=== PATIENT | male | born 1975 | race Caucasian/White ===

== ENCOUNTER 2021-08-07 10:08 | Emergency (ER) | payer BC ==
--- NOTE | 2021-08-07 11:02 | ER ---
Nurse's Notes [facility] [place] Name: Beny Nino Age: 45 yrs Sex: Male : 1975 Arrival Date: 08/07/2021 Time: 10:11 Bed 15 Private MD: Diagnosis: Tobacco abuse counseling;Tobacco use;Dyspnea Presentation: 08/07 10:24 Chief complaint: Patient states: SOB for 7-10 days, worse for 2 days. No cough or ll1 fever. Worried because his mom has lung CA. Coronavirus screen: Vaccine status: Patient reports being unvaccinated. Client denies travel out of the [place] in the last 14 days. difficulty breathing, fatigue, shortness of breath, Client presents with at least one sign or symptom that may indicate coronavirus-19. Standard/surgical mask placed on the client. Ebola Screen: Patient denies travel to an Ebola-affected area in the 21 days before illness onset. Initial Sepsis Screen: Does the patient meet any 2 criteria? No. Patient's initial sepsis screen is negative. Does the patient have a suspected source of infection? Yes: Productive cough/pneumonia. Risk Assessment: Do you want to hurt yourself or someone else? Patient reports no desire to harm self or others. Onset of symptoms was July 29, 2021. 10:24 Method Of Arrival: Ambulatory ll1 10:24 Acuity: LEO 3 ll1 Triage Assessment: 10:26 General: Appears in no apparent distress. Behavior is cooperative, appropriate for age, ll1 anxious. Pain: Denies pain. Respiratory: Reports shortness of breath Onset: The symptoms/episode began/occurred 10 days, the patient has mild shortness of breath. Historical: - Allergies: 10:23 No Known Allergies; ll1 - PMHx: 10:23 None; ll1 - PSHx: 10:23 knee cellulitis SX; ll1 - Immunization history:: Client reports having NOT received the Covid vaccine. - Social history:: Smoking status: Patient reports the use of cigarette tobacco products, smokes one-half pack cigarettes per day. - Family history:: not pertinent. Screenin:22 Abuse screen: Denies threats or abuse. Denies injuries from another. Nutritional ph screening: No deficits noted. Tuberculosis screening: No symptoms or risk factors identified. Fall Risk None identified. Assessment: 10:37 General: Appears in no apparent distress. comfortable, well groomed, Behavior is calm, ph cooperative, appropriate for age, Denies fever, chills, Pt states, " It's like I have episodes of were I feel like I can't breathe and my heart races and I feel weak. It happened at work this morning." Pt's SO at bedside reports that pt has had these symptoms on mornings after drinking alcohol the night before. . Pain: Denies pain. Neuro: Level of Consciousness is awake, alert, obeys commands, Oriented to person, place, time, situation. Cardiovascular: Reports lightheadedness, palpitations, shortness of breath, denies at this time Denies chest pain, diaphoresis, nausea, vomiting. Respiratory: Reports shortness of breath Airway is patent Respiratory effort is even, unlabored, Respiratory pattern is regular, symmetrical, Breath sounds are clear bilaterally. GI: No signs and/or symptoms were reported involving the gastrointestinal system. Derm: Skin is intact, is healthy with good turgor, Skin is pink, warm \\T\\ dry. Musculoskeletal: Circulation, motion, and sensation intact. Range of motion: intact in all extremities. 11:01 Reassessment: D/C pending xray results. ph Vital Signs: 10:24 BP 134 / 73; Pulse 85; Resp 18; Temp 99.1(TE); Pulse Ox 97% on R/A; Weight 78.93 kg; ll1 Height 6 ft. 0 in. (182.88 cm); Pain 0/10; 11:40 BP 127 / 80; Pulse 87; Resp 18; Temp 98.9; Pulse Ox 98% on R/A; ph 10:24 Body Mass Index 23.60 (78.93 kg, 182.88 cm) ll1 ED Course: 10:11 Patient arrived in ED. rg4 10:15 Shar Nino MD is Attending Physician. lui 10:22 Vika Collins, RN is Primary Nurse. ph 10:22 Arm band placed on Patient placed in an exam room, on a stretcher. ll1 10:23 Patient has correct armband on for positive identification. Bed in low position. Call ph light in reach. Side rails up X 1. Pulse ox on. NIBP on. Door closed. Noise minimized. 10:26 Triage completed. ll1 11:00 Shane Green DO is Referral Physician. [facility] 11:03 Chest Pa And Lat (2 Views) XRAY In Process Unspecified. EDMS 11:40 No provider procedures requiring assistance completed. Patient did not have IV access ph during this emergency room visit. Administered Medications: No medications were administered Medication: 10:23 VIS not applicable for this client. ph Outcome: 11:00 Discharge ordered by . [facility] 11:45 Patient left the ED. ph 12:14 Discharged to home ambulatory, with significant other. ph 12:14 Condition: good 12:14 Discharge instructions given to patient, Instructed on discharge instructions, follow up and referral plans. Demonstrated understanding of instructions, follow-up care. Signatures: Dispatcher [employer] EDND Shar Nino MD MD cha Hall, Patricia, RN RN Akanksha Butler rg4 Leonor Santiago RN RN ll1
--- NOTE | 2021-08-07 11:02 | EDPHYS ---
Physician Documentation [facility] Name: Beny Nino Age: 45 yrs Sex: Male : 1975 Arrival Date: 08/07/2021 Time: 10:11 Bed 15 Private MD: Shar De La Rosa HPI: 08/07 10:56 This 45 yrs old Male presents to ER via Ambulatory with complaints of lui Breathing Difficulty, Weakness. 10:56 The patient has shortness of breath at rest, with light activity. Onset: The lui symptoms/episode began/occurred just prior to arrival. Duration: The symptoms are intermittent, with no pattern. The patient's shortness of breath is aggravated by nothing, is alleviated by nothing. Associated signs and symptoms: The patient has no apparent associated signs or symptoms. Severity of symptoms: At their worst the symptoms were mild in the emergency department the symptoms have improved markedly. The patient has experienced similar episodes in the past, several times. Historical: - Allergies: 10:23 No Known Allergies; ll1 - PMHx: 10:23 None; ll1 - PSHx: 10:23 knee cellulitis SX; ll1 - Immunization history:: Client reports having NOT received the Covid vaccine. - Social history:: Smoking status: Patient reports the use of cigarette tobacco products, smokes one-half pack cigarettes per day. - Family history:: not pertinent. ROS: 10:56 Constitutional: Negative for fever, chills, and weight loss, Eyes: Negative for injury, lui pain, redness, and discharge, ENT: Negative for injury, pain, and discharge, Neck: Negative for injury, pain, and swelling, Cardiovascular: Negative for chest pain, palpitations, and edema, Abdomen/GI: Negative for abdominal pain, nausea, vomiting, diarrhea, and constipation, Back: Negative for injury and pain, : Negative for injury, bleeding, discharge, and swelling, MS/Extremity: Negative for injury and deformity, Skin: Negative for injury, rash, and discoloration, Neuro: Negative for headache, weakness, numbness, tingling, and seizure, Psych: Negative for depression, anxiety, suicide ideation, homicidal ideation, and hallucinations, Allergy/Immunology: Negative for hives, rash, and allergies, Endocrine: Negative for neck swelling, polydipsia, polyuria, polyphagia, and marked weight changes, Hematologic/Lymphatic: Negative for swollen nodes, abnormal bleeding, and unusual bruising. 10:56 Respiratory: Positive for cough, shortness of breath, at rest. Exam: 10:56 Constitutional: This is a well developed, well nourished patient who is awake, alert, lui and in no acute distress. Head/Face: Normocephalic, atraumatic. Eyes: Pupils equal round and reactive to light, extra-ocular motions intact. Lids and lashes normal. Conjunctiva and sclera are non-icteric and not injected. Cornea within normal limits. Periorbital areas with no swelling, redness, or edema. ENT: Nares patent. No nasal discharge, no septal abnormalities noted. Tympanic membranes are normal and external auditory canals are clear. Oropharynx with no redness, swelling, or masses, exudates, or evidence of obstruction, uvula midline. Mucous membranes moist. Neck: Trachea midline, no thyromegaly or masses palpated, and no cervical lymphadenopathy. Supple, full range of motion without nuchal rigidity, or vertebral point tenderness. No Meningismus. Chest/axilla: Normal chest wall appearance and motion. Nontender with no deformity. No lesions are appreciated. Cardiovascular: Regular rate and rhythm with a normal S1 and S2. No gallops, murmurs, or rubs. Normal PMI, no JVD. No pulse deficits. Respiratory: Lungs have equal breath sounds bilaterally, clear to auscultation and percussion. No rales, rhonchi or wheezes noted. No increased work of breathing, no retractions or nasal flaring. Abdomen/GI: Soft, non-tender, with normal bowel sounds. No distension or tympany. No guarding or rebound. No evidence of tenderness throughout. Back: No spinal tenderness. No costovertebral tenderness. Full range of motion. Male : Normal genitalia with no discharge or lesions. Skin: Warm, dry with normal turgor. Normal color with no rashes, no lesions, and no evidence of cellulitis. MS/ Extremity: Pulses equal, no cyanosis. Neurovascular intact. Full, normal range of motion. Neuro: Awake and alert, GCS 15, oriented to person, place, time, and situation. Cranial nerves II-XII grossly intact. Motor strength 5/5 in all extremities. Sensory grossly intact. Cerebellar exam normal. Normal gait. Psych: Awake, alert, with orientation to person, place and time. Behavior, mood, and affect are within normal limits. 10:56 Musculoskeletal/extremity: DVT Exam: No signs of deep vein thrombosis. no pain, no swelling, no tenderness, negative Homans' sign noted on exam, no appreciated bluish discoloration, no erythema, no increased warmth. Vital Signs: 10:24 BP 134 / 73; Pulse 85; Resp 18; Temp 99.1(TE); Pulse Ox 97% on R/A; Weight 78.93 kg; ll1 Height 6 ft. 0 in. (182.88 cm); Pain 0/10; 11:40 BP 127 / 80; Pulse 87; Resp 18; Temp 98.9; Pulse Ox 98% on R/A; ph 10:24 Body Mass Index 23.60 (78.93 kg, 182.88 cm) ll1 MDM: 10:15 Patient medically screened. lui 10:58 Differential diagnosis: Bronchitis pneumonia. Antibiotic administration: Not indicated. lui The patient's Wells Deep Vein Thrombosis Score was calculated as follows: Total Score: 0-2 Pts- Low Risk. The patient's pulmonary embolism risk score was calculated as follows: Total Score: 0-2 points. This patient was found to be at low risk for a pulmonary embolism by using the Well's assessment criteria. Immunization status:. Data reviewed: vital signs, nurses notes, radiologic studies, plain films. 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 Test interpretation: by ED physician or midlevel provider: plain radiologic studies. Counseling: I had a detailed discussion with the patient and/or guardian regarding: the historical points, exam findings, and any diagnostic results supporting the discharge/admit diagnosis, lab results, radiology results, the need for outpatient follow up, for definitive care, a family practitioner, a compensation and benefits analyst. 08/07 10:32 Order name: Chest Pa And Lat (2 Views) XRAY lui Administered Medications: No medications were administered Disposition Summary: 08/07/21 11:00 Discharge Ordered Location: Home lui Problem: new lui Symptoms: have improved lui Condition: Stable lui Diagnosis - Tobacco abuse counseling lui - Tobacco use lui - Dyspnea lui Followup: lui - With: Private Physician - When: 2 - 3 days - Reason: Recheck today's complaints, Continuance of care, Re-evaluation by your physician Followup: lui - With: Shane Green, DO - When: 2 - 3 days - Reason: Recheck today's complaints, Re-evaluation by your physician Discharge Instructions: - Discharge Summary Sheet lui - Steps to Quit Smoking lui - Health Risks of Smoking lui - Steps to Quit Smoking, [id number] [facility] Forms: - Medication Reconciliation Form lui - Thank You Letter lui - Antibiotic Education lui - Prescription Opioid Use lui - Work release form ph Signatures: Dispatcher [employer] Shar Palacio MD MD cha Lewis, Lynsay, RN RN ll1
--- NOTE | 2021-08-07 11:22 | RAD REPORT ---
EXAM DESCRIPTION: Karthik Ochoa (2 Views)08/07/2021 11:01 am CLINICAL HISTORY: Cough COMPARISON: None FINDINGS: The lungs appear clear of acute infiltrate. The heart is normal size IMPRESSION: No acute abnormalities displayed
[2021-08-07 11:56] VITALS: BP 134/73; TEMP 99.1; O2SAT 97
== END 2021-08-07 11:45 | disposition home or self-care (01) ==
LOC: ER 10:08
DX: R06.00 Dyspnea, unspecified (principal); Z72.0 Tobacco use; Z71.6 Tobacco abuse counseling; R05.9 Cough, unspecified
CPT/HCPCS: 71046; 99283

== ENCOUNTER 2021-11-24 19:46 | Emergency (ER) | payer BC ==
--- NOTE | 2021-11-24 20:20 | ER ---
Nurse's Notes [facility] Name: Beny Nino Age: 46 yrs Sex: Male : 1975 Arrival Date: 11/24/2021 Time: 19:50 Bed Waiting Private MD: Diagnosis: ED Course: 11/24 19:50 Patient arrived in ED. [email or web address] Administered Medications: No medications were administered Outcome: 20:20 Patient left the ED. ld1 Signatures: Lindsey Huston RN RN ld1 [address]
== END 2021-11-24 20:20 | disposition left against medical advice (07) ==
LOC: ER 19:46
DX: Z02.9 Encounter for administrative examinations, unspecified (principal)

== ENCOUNTER 2023-08-23 14:42 | Emergency (ER) | payer BC ==
--- OUTSIDE RECORDS SUMMARY | 2023-08-23 14:44 | XMS REPORT | Continuity of Care Document ---
Author Name Unknown Address [address] [place] [address] [facility] Address [address] [place] [address] Care Team Providers Care [employer] Custodian Name Role Phone Unavailable Unavailable Unavailable Encounters Start Date/Time End Date/Time Encounter Type Admission Type Attending Clinicians Care Facility Care Department Encounter ID Source 2023-03-29 07:41:45 2023-03-29 07:41:45 Outpatient [facility] [id number] Hari Haines 2022-07-27 15:55:59 2022-07-27 15:55:59 Outpatient [facility] [id number] Hari Haines Results Test Description Test Time Test Comments Results Result Co mments Source VITAMIN D, 25 [id number] 05:33:29* Test Item Value Reference Range Interpretation Comme nts VITAMIN D, 25 OH (test code = 4958) 35 NG/ML SEE BELOW EFFECTIVE 11/2022, PLEASE NOTE NEW METHODOLOGY IS ELECTROCHEMILUMINESCENCE BINDING ASSAY. NOTE: 25-HYDROXYVITAMIN D ASSAY INCLUDES 25-HYDROXYVITAMIN D2 AND D3. INTERPRETIVE RANGES PEDIATRIC (<17 YEARS) . . . . . . . . . . . NG/ML 20-100ADULT: INSUFFICIENT . . . . . . . . . . . . . . NG/ML <20 SUBOPTIMAL . . . . . . . . . . . . . . . NG/ML 20-29 OPTIMAL . . . . . . . . . . . . . . . . . NG/ML 30-100 CBC W/AUTO DIFF WITH [id number] 02:13:37* Test Item Value Reference Range Interpretation Comme nts WBC (test code = 1001) 9.0 K/UL 3.5-11.0 RBC (test code = 1002) 4.88 M/UL 4.50-6.10 HEMOGLOBIN (test code = 1003) 16.1 G/DL 13.5-17.0 HEMATOCRIT (test code = 1004) 45.5 % 40.0-51.0 MCV (test code = 1005) 93.2 fL 80.0-99.0 MCH (test code = 1006) 33.0 PG 25.0-33.0 MCHC (test code = 1007) 35.4 G/DL 31.0-36.0 RDW (test code = 1038) 12.7 % 11.5-15.0 NEUTROPHILS (test code = 1008) 55.8 % LYMPHOCYTES (test code = 1010) 30.3 % MONOCYTES (test code = 1011) 7.3 % EOSINOPHILS (test code = 1012) 5.6 % BASOPHILS (test code = 1013) 0.8 % IMMATURE GRANULOCYTES (test code = 1036) 0.2 % NUCLEATED RBCS (test code = 1065) 0.0 /100 WBC'S See_Comment [Automated messa ge] The system which generated this result transmitted reference range: 0.0. The reference range was not used to interpret this result as normal/abnormal. PLATELET COUNT (test code = 1015) 277 K/UL 130-400 ABSOLUTE NEUTROPHILS (test code = 1066) 5.00 K/UL 1.50-7.50 ABSOLUTE LYMPHOCYTES (test code = 1067) 2.71 K/UL 1.00-4.00 ABSOLUTE MONOCYTES (test code = 1068) 0.65 K/UL 0.20-1.00 ABSOLUTE EOSINOPHILS (test code = 1040) 0.50 K/UL 0.00-0.50 ABSOLUTE BASOPHILS (test code = 1069) 0.07 K/UL 0.00-0.20 ABS IMMATURE GRANULOCYTES (test code = 1020) 0.02 K/UL 0.00-0.10 ABS NUCLEATED RBCS (test code = 88301) 0.00 K/UL 0.00-0.11
[2023-08-23 15:34] LABS: Absolute Basophils 0.1 K/uL (0-0.5); Absolute Eosinophils 0.5 K/uL (0-0.5); Absolute Lymphocytes (CBC) 2.4 K/uL (0.7-4.9); Absolute Monocytes 0.7 K/uL (0.1-1.3); Absolute Neutrophil 3.6 K/uL (1.8-8.0); Basophils % 0.7 % (0-1.3); Eosinophils % 6.6 % (0-4.4); Hematocrit 44.8 % (39.6-49.0); Hemoglobin 15.1 g/dL (13.6-17.9); Lymphocytes % 33.9 % (15.3-44.8); MCH 32.7 pg (27.0-35.0); MCHC 33.8 g/dL (32.0-36.0); MCV 96.8 fL (80-100); MPV 7.7 fL (7.6-11.3); Monocytes % 9.1 % (3.3-12.3); Neutrophils % 49.7 % (41.7-73.7); Platelets 251 thou/uL (152-406); RBC Red Blood Cell Count 4.63 M/uL (4.33-5.43); Red Cell Distribution Width 13.4 % (12.1-15.2)
[2023-08-23 15:50] LABS: ALT/SGPT 34 U/L (16-61); AST/SGOT 16 U/L (15-37); Albumin/Globulin Ratio 1.3 (1.1-1.8); Alkaline Phosphatase 60 U/L (45-117); Anion Gap 4.7 mEq/L (5.0-15.0); BUN Blood Urea Nitrogen 10 mg/dL (7-18); Bicarbonate 34 mEq/L (21-32); Bilirubin Total 0.3 mg/dL (0.2-1.0); Globulin 3.2 g/dL (2.3-3.5); Glomerular Filtration Rate 83 ml/min (=/>90); Glucose Level 92 mg/dL (74-106); Lipase 45 U/L (13-75); Magnesium 2.3 mg/dL (1.6-2.4); NT PRO-BNP 27 pg/mL (<125); Potassium 3.7 mEq/L (3.5-5.1); Protein, Total 7.2 g/dL (6.4-8.2); Sodium Level 140 mEq/L (136-145)
[2023-08-23 16:29] LABS: Bilirubin Direct < 0.2 mg/dL (0-0.2); Bilirubin Indirect, Calculated 0.1 mg/dL (0.2-0.8); Troponin High Sensitivity < 3.0 pg/mL (<58.9)
--- NOTE | 2023-08-23 16:50 | RAD REPORT ---
EXAM DESCRIPTION: CT - Chest For Pe Angio - 08/23/2023 4:00 pm CLINICAL HISTORY: CHEST PAIN COMPARISON: No comparisons TECHNIQUE: Thin axial CT images of the chest were obtained following administration of iodinated co ntrast intravenously. Multiplanar reconstructions, and maximum intensity projection reconstructions w ere generated and reviewed. Exam utilizes a protocol for optimal evaluation of pulmonary arterial maryanne e. All CT scans are performed using dose optimization technique as appropriate and may include automated exposure control or mA/KV adjustment according to patient size. FINDINGS: Pulmonary arteries are normal. No emboli or other suspicious finding. No acute or signific ant aorta findings. No mass or infiltrate in the lung parenchyma. No pleural thickening or pleural effusion. No pneumotho rax. No abnormal mediastinal or hilar masses or lymphadenopathy seen. No chest wall mass or abnormal axill iary lymphadenopathy. IMPRESSION: No evidence of acute central pulmonary emboli. Negative CT scan of the chest for other significant findings.
--- NOTE | 2023-08-23 18:20 | ER ---
Nurse's Notes [facility] Name: eBny Nino Age: 47 yrs Sex: Male : 1975 Arrival Date: 08/23/2023 Time: 14:42 Bed 6 Private MD: Diagnosis: Chest pain, unspecified Presentation: 08/22 14:50 Chief complaint: Patient states: pain in mid back, hurts to breath Some pain in ko1 epigastric area as well. Its been going on for about 3-4 weeks, hard to breath for a week. Coronavirus screen: At this time, the client does not indicate any symptoms associated with coronavirus-19. Ebola Screen: No symptoms or risks identified at this time. Initial Sepsis Screen: Does the patient meet any 2 criteria? No. Patient's initial sepsis screen is negative. Does the patient have a suspected source of infection? No. Patient's initial sepsis screen is negative. Risk Assessment: Do you want to hurt yourself or someone else? Patient reports no desire to harm self or others. Onset of symptoms is unknown. 14:50 Method Of Arrival: Ambulatory ko1 14:50 Acuity: LEO 3 ko1 Triage Assessment: 14:53 General: Appears in no apparent distress. Behavior is calm, cooperative, appropriate ko1 for age. Pain: Complains of pain in thoracic area. Respiratory: Reports pain with respiration Onset: The symptoms/episode began/occurred at an unknown time. the patient has moderate shortness of breath. Historical: - Allergies: 14:53 No Known Allergies; ko1 - PMHx: 14:53 Diverticulitis; ko1 - PSHx: 14:53 knee cellulitis SX; ko1 - Immunization history:: Adult Immunizations unknown. - Infectious Disease History:: Denies. - Social history:: Smoking status: Patient reports the use of cigarette tobacco products, smokes one pack cigarettes per day. Screenin:00 [facility] ED Fall Risk Assessment (Adult) History of falling in the last 3 months, rs5 including since admission No falls in past 3 months (0 pts) Confusion or Disorientation No (0 pts) Intoxicated or Sedated No (0 pts) Impaired Gait No (0 pts) Mobility Assist Device Used No (0 pt) Altered Elimination No (0 pt) Score/Fall Risk Level 0 - 2 = Low Risk Oriented to surroundings, Maintained a safe environment. Abuse screen: Denies threats or abuse. Nutritional screening: No deficits noted. Tuberculosis screening: No symptoms or risk factors identified. Assessment: 15:00 General: Appears in no apparent distress. uncomfortable, Behavior is calm, cooperative. rs5 Pain: Complains of pain in back and chest Pain currently is 3 out of 10 on a pain scale. Quality of pain is described as aching, Is continuous. Neuro: Level of Consciousness is awake, alert, obeys commands, Oriented to person, place, time, situation. Cardiovascular: Patient's skin is warm and dry. Rhythm is regular. Respiratory: Airway is patent Respiratory effort is even, unlabored, Respiratory pattern is regular, symmetrical, Respiratory: Reports shortness of breath. GI: GI: Abdomen is round non-distended, Abd is soft and non tender X 4 quads. : No signs and/or symptoms were reported regarding the genitourinary system. EENT: No signs and/or symptoms were reported regarding the EENT system. Derm: Skin is intact, Skin is pink, warm \T\ dry. Musculoskeletal: Range of motion: intact in all extremities. 16:10 Reassessment: Patient and/or family updated on plan of care and expected duration. Pain rs5 level reassessed. Patient is alert, oriented x 3, equal unlabored respirations, skin warm/dry/pink. Patient denies pain at this time. 17:15 Reassessment: No changes from previously documented assessment. rs5 18:10 Reassessment: Patient and/or family updated on plan of care and expected duration. Pain rs5 level reassessed. Patient is alert, oriented x 3, equal unlabored respirations, skin warm/dry/pink. Patient denies pain at this time. Vital Signs: 14:50 BP 136 / 94; Pulse 67; Resp 16; Temp 98.1; Pulse Ox 100% on R/A; ko1 16:24 BP 133 / 88; Pulse 70; Resp 17; Pulse Ox 99% on R/A; rs5 18:20 BP 135 / 84; Pulse 77; Resp 17; Pulse Ox 99% on R/A; rs5 ED Course: 14:44 Patient arrived in ED. rg4 14:53 Cristobal Green MD is Attending Physician. sp3 14:53 Triage completed. ko1 14:53 Arm band placed on right wrist. Patient placed in an exam room, on a stretcher, on ko1 c python developer, on pulse oximetry, Patient notified of wait time. 15:00 Patient has correct armband on for positive identification. Placed in gown. Bed in low rs5 position. Call light in reach. Side rails up X2. 15:05 Inserted saline lock: 20 gauge in left antecubital area, using aseptic technique. Blood rs5 collected. 15:11 Mark Conner, RN is Primary Nurse. rs5 16:01 CT Chest For PE Angio In Process Unspecified. EDMS 16:24 No provider procedures requiring assistance completed. rs5 18:25 IV discontinued, intact, bleeding controlled, No redness/swelling at site. Pressure rs5 dressing applied. Administered Medications: No medications were administered Medication: 16:24 VIS not applicable for this client. rs5 Outcome: 18:20 Discharge ordered by . sp3 18:25 Discharged to home ambulatory, rs5 18:25 Condition: stable 18:25 Discharge instructions given to patient, family, Instructed on discharge instructions, follow up and referral plans. Demonstrated understanding of instructions, follow-up care, 18:28 Patient left the ED. rs5 Signatures: Dispatcher [employer] [facility] Akanksha oRgel rg4 Cristobal Green MD MD sp3 Dee Skelton, TRACY RN ko1 Mark Conner, RN RN rs5 Corrections: (The following items were deleted from the chart) 15:02 14:53 Social history: Smoking status: Patient denies any tobacco usage or history of. ko1 ko1
--- NOTE | 2023-08-23 18:21 | EDPHYS ---
Physician Documentation [facility] Name: Beny Nino Age: 47 yrs Sex: Male : 1975 Arrival Date: 08/23/2023 Time: 14:42 Bed 6 Private MD: ED Physician Cristobal Green HPI: 08/22 15:19 This 47 yrs old Male presents to ER via Ambulatory with complaints of Breathing sp3 Difficulty, Back Pain. 15:19 47-year-old male with history of diverticulitis now presents to the ED with 1 month sp3 history of substernal chest pain into the epigastric region radiating to his back. Patient also states he has difficulty breathing from time to time during these episodes and he has sharp pain radiating around his chest wall as well. He denies any ongoing pain and states that it comes in spurts. Denies any headache, neck pain, URI symptoms, fever, vomiting, cough, abdominal pain, vomiting, diarrhea, heavy alcohol use, illicit drug use, syncope, near syncope, rash, bleeding, or any other signs or symptoms on ROS at this time. Patient does occasionally use dip tobacco.. Historical: - Allergies: 14:53 No Known Allergies; ko1 - PMHx: 14:53 Diverticulitis; ko1 - PSHx: 14:53 knee cellulitis SX; ko1 - Immunization history:: Adult Immunizations unknown. - Infectious Disease History:: Denies. - Social history:: Smoking status: Patient reports the use of cigarette tobacco products, smokes one pack cigarettes per day. ROS: 15:20 Constitutional: Negative for fever, chills, and weight loss, Eyes: Negative for injury, sp3 pain, redness, and discharge, ENT: Negative for injury, pain, and discharge, Neck: Negative for injury, pain, and swelling, Abdomen/GI: Negative for abdominal pain, nausea, vomiting, diarrhea, and constipation, Back: Negative for injury and pain, MS/Extremity: Negative for injury and deformity, Skin: Negative for injury, rash, and discoloration, Neuro: Negative for headache, weakness, numbness, tingling, and seizure, Psych: Negative for depression, anxiety, suicide ideation, homicidal ideation, and hallucinations, Allergy/Immunology: Negative for hives, rash, and allergies, Endocrine: Negative for neck swelling, polydipsia, polyuria, polyphagia, and marked weight changes, Hematologic/Lymphatic: Negative for swollen nodes, abnormal bleeding, and unusual bruising, 15:20 All other systems are negative, Exam: 15:20 Constitutional: This is a well developed, well nourished patient who is awake, alert, sp3 and in no acute distress. Head/Face: Normocephalic, atraumatic. Eyes: Pupils equal round and reactive to light, extra-ocular motions intact. Lids and lashes normal. Conjunctiva and sclera are non-icteric and not injected. Cornea within normal limits. Periorbital areas with no swelling, redness, or edema. ENT: Nares patent. No nasal discharge, no septal abnormalities noted. External auditory canals are clear. Oropharynx with no redness, swelling, or masses, exudates, or evidence of obstruction, uvula midline. Mucous membranes moist. Neck: Trachea midline, no thyromegaly or masses palpated, and no cervical lymphadenopathy. Supple, full range of motion without nuchal rigidity, or vertebral point tenderness. No Meningismus. Chest/axilla: Normal chest wall appearance and motion. Nontender with no deformity. No lesions are appreciated. Cardiovascular: Regular rate and rhythm with a normal S1 and S2. No gallops, murmurs, or rubs. Normal PMI, no JVD. No pulse deficits. Respiratory: Lungs have equal breath sounds bilaterally, clear to auscultation and percussion. No rales, rhonchi or wheezes noted. No increased work of breathing, no retractions or nasal flaring. Back: No spinal tenderness. No costovertebral tenderness. Full range of motion. Skin: Warm, dry with normal turgor. Normal color with no rashes, no lesions, and no evidence of cellulitis. MS/ Extremity: Pulses equal, no cyanosis. Neurovascular intact. Full, normal range of motion. Neuro: Awake and alert, GCS 15, oriented to person, place, time, and situation. Cranial nerves II-XII grossly intact. Motor strength 5/5 in all extremities. Sensory grossly intact. Cerebellar exam normal. Normal gait. Psych: Awake, alert, with orientation to person, place and time. Behavior, mood, and affect are within normal limits. 15:20 Abdomen/GI: Mild epigastric pain to palpation without peritoneal signs, rebound or guarding., 15:32 ECG was reviewed by the Attending Physician. EKG demonstrates normal sinus rhythm at 67 sp3 bpm with normal normals, normal QRS, normal axis, normal ST's ST changes without evidence of acute ischemia. Vital Signs: 14:50 BP 136 / 94; Pulse 67; Resp 16; Temp 98.1; Pulse Ox 100% on R/A; ko1 16:24 BP 133 / 88; Pulse 70; Resp 17; Pulse Ox 99% on R/A; rs5 18:20 BP 135 / 84; Pulse 77; Resp 17; Pulse Ox 99% on R/A; rs5 MDM: 15:01 Patient medically screened. sp3 15:21 Data reviewed: vital signs, nurses notes, lab test result(s), EKG, radiologic studies. sp3 ED course: 47-year-old male with chest pain, shortness of breath and epigastric abdominal pain. Differential diagnosis includes pleurisy, PE, ACS, chest wall pain, aortic pathology, GI pathology, esophagitis, gastritis, biliary pathology, pancreatitis, among others. Workup will include laboratory values, CT scan of the chest PE protocol, EKG and general observation. Vital signs are normal and patient is in no acute distress. Disposition pending workup and patient course.. 18:19 ED course: Full workup negative including [address] scan scan of the chest is sp3 also negative. We will discharge patient home. He states he is switching PCPs and will be seeing Dr. Shane Green soon as possible.. 08/22 15:02 Order name: Basic Metabolic Panel; Complete Time: 16:29 3 08/22 15:02 Order name: CBC with Diff; Complete Time: 16:29 3 08/22 15:02 Order name: LFT's; Complete Time: 16:29 3 08/22 15:02 Order name: Magnesium; Complete Time: 16:29 3 08/22 15:02 Order name: NT PRO-BNP; Complete Time: 16:29 3 08/22 15:02 Order name: PT-INR; Complete Time: 16:29 3 08/22 15:02 Order name: Troponin HS; Complete Time: 16:29 3 08/22 15:02 Order name: Lipase; Complete Time: 16:29 3 08/22 16:54 Order name: Troponin High Sensitivity: Draw 2 hours from first; Complete Time: 18:08 sp3 08/22 15:02 Order name: CT Chest For PE Angio; Complete Time: 16:53 sp3 08/22 15:02 Order name: Cardiac monitoring; Complete Time: 15:34 sp3 08/22 15:02 Order name: EKG - Nurse/Tech; Complete Time: 15:34 sp3 08/22 15:02 Order name: IV Saline Lock; Complete Time: 15:34 sp3 08/22 15:02 Order name: Labs collected and sent; Complete Time: 15:34 sp3 08/22 15:02 Order name: O2 Per Protocol; Complete Time: 15:34 sp3 08/22 15:02 Order name: O2 Sat Monitoring; Complete Time: 15:34 sp3 Administered Medications: No medications were administered Disposition Summary: 08/23/23 18:20 Discharge Ordered Notes: Location: Home sp3 Condition: Stable sp3 Diagnosis - Chest pain, unspecified sp3 Followup: sp3 - With: Private Physician - When: Upon discharge from the Emergency Department - Reason: Continuance of care Discharge Instructions: - Discharge Summary Sheet sp3 - Nonspecific Chest Pain, Adult sp3 Forms: - Medication Reconciliation Form sp3 - Antibiotic Education sp3 - Prescription Opioid Use sp3 - Patient Portal Instructions sp3 - Leadership Thank You Letter sp3 Signatures: Dispatcher [employer] Cristobal Cook MD MD sp3 Dee Skelton RN RN ko1 Corrections: (The following items were deleted from the chart) 15:02 14:53 Social history: Smoking status: Patient denies any tobacco usage or history of. ko1 ko1 15:03 15:03 Chest For PE Angio+CT.RAD.BRZ ordered. EDNE ED
[2023-08-23 18:56] VITALS: BP 133/88; TEMP 98.1; O2SAT 99
== END 2023-08-23 18:28 | disposition home or self-care (01) ==
LOC: ER 14:42
DX: R07.9 Chest pain, unspecified (principal)
CPT/HCPCS: 85025; 80048; 36415; 83735; 85610; 80076; 84484 ×2; 83690; 83880; 71275; Q9967; 93005

== ENCOUNTER 2024-02-03 11:50 | Emergency (ER) | payer BC ==
--- OUTSIDE RECORDS SUMMARY | 2024-02-03 11:55 | XMS REPORT | Continuity of Care Document ---
Author Name Unknown Address [address] [facility] [address] [facility] [address] [place] [address] [facility] thconnect Address [address] [facility] [facility] [address] [place] [address] Care Team Providers Care Ballroom Dancer Name Role Phone PCP, PATIENT DOES NOT HAVE A Primary Care Physic rehana Unavailable Hu Rodriguez DO Attending Clinician HU RODRIGUEZ Attending Clinician Unavailable HU RODRIGUEZ Attending Clinician Unavailable PATRICIA BUENO Attending Clinician Unavailab Patricia Daniel DO Attending Clinician [phone] PATRICIA BUENO Admitting Clinician Unavailab rachael Payers Payer Name Policy Type Policy Number Effective Date Expirati on Date Source Allergies, Adverse Reactions, Alerts Allergy Name Allergy Type Status Severity Reaction(s) Onset Date Inactive Date Treating Clinician Comments Source NO KNOWN ALLERGIE S Drug Class Active [facility] Social History Social Habit Start Date Stop Date Quantity Comments Source Sexual orientation [facility] Exposure to SARS-CoV-2 (event) 2022-07-16 00:00:00 2022-07-26 19:17:00 Not sure [facility] Sex assigned at 1975 00:00:00 1975 00:00:00 [facility] Smoking Status Start Date Stop Date Source Tobacco smoking consumption unknown [facility] Medications Ordered Medication Name Filled Medication Name Start Date Stop Date Current Medication? Ordering Clinician Indication Dosage Frequency Signature (SIG) Comments Components Source maalox/diph enhydrAMINE :lidocaine2 %viscous 1:1:1: suspension (COMPOUNDED ) 2023-03 09:15: 00 02-01 09:24 :00 No 15mL 15 mL, Oral, ONCE, 1 dose, On Mon02/02/24 at 0315, Routine [facility] iopamidol (ISOVUE 370-500 mL) injection 85 mL 2023-03 08:45: 00 02-01 08:45 :00 No [id number] 85mL 85 mL, Intravenou s, ONCE, 1 dose, On Mon02/02/24 at 0245, Routine [facility] ondansetron (ZOFRAN (PF)) injection 4 mg 2023-03 07:00: 00 02-01 06:12 :00 No 4mg 4 mg, Slow IV Push, ONCE, 1 dose, On Mon02/02/24 at 0100, 2 mL [facility] NaCl 0.9% (NS) bolus infusion 1,000 mL 2023-03 06:00: 00 02-01 09:24 :00 No 1000mL at 999 mL/hr, 1,000 mL, IV Infusion, ONCE, 1 dose, On Mon02/02/24 at 0000, STAT [facility] morpHINE (4 mg/mL) injection 4 mg 2023-03 05:53: 29 Yes 4mg 4 mg, Slow IV Push, Q4HPRN, Starting on Trini 02/01/24 at 2353, Until Discontinu ed, Routine, Pain (scale 7-10) [facility] Vital Signs Vital Name Observation Time Observation Value Comments S ource Systolic blood pressure 2024-02-02 09:00:00 108 mm[Hg] [facility] Diastolic blood pressure 2024-02-02 09:00:00 77 mm[Hg] [facility] Heart rate 2024-02-02 09:00:00 92 /min [facility] Respiratory rate 2024-02-02 09:00:00 22 /min [facility] Oxygen saturation in Arterial blood by Pulse oximetry 2024-02-02 09:00:00 97 /min [facility] Body temperature 2024-02-02 05:46:00 36.78 Alina [facility] Body height 2024-02-02 05:46:00 177.8 cm [facility] Body weight 2024-02-02 05:46:00 82.555 kg [facility] BMI 2024-02-02 05:46:00 26.11 kg/m2 [facility] Systolic blood pressure 2022-07-27 00:11:00 147 mm[Hg] [facility] Diastolic blood pressure 2022-07-27 00:11:00 96 mm[Hg] [facility] Heart rate 2022-07-27 00:11:00 74 /min [facility] Body temperature 2022-07-27 00:11:00 37 Alina [facility] Respiratory rate 2022-07-27 00:11:00 16 /min [facility] Body height 2022-07-27 00:11:00 182.9 cm [facility] Body weight 2022-07-27 00:11:00 81.647 kg [facility] BMI 2022-07-27 00:11:00 24.41 kg/m2 [facility] Oxygen saturation in Arterial blood by Pulse oximetry 2022-07-27 00:11:00 98 /min [facility] Procedures Procedure Date / Time Performed Performing Clinicia n Source CT ABDOMEN PELVIS W CONTRAST 2024-02-02 07:47:33 Hu Rodriguez [facility] LIPASE 2024-02-02 06:13:00 Hu Rodriguez [facility] TROPONIN I 2024-02-02 06:13:[address] [facility] COMP. METABOLIC PANEL ([id number]) 2024-02-02 06:13:00 Hu Rodriguez [facility] ETHANOL 2024-02-02 06:13:00 Hu Rodriguez [facility] CBC WITH DIFF 2024-02-02 06:13:00 Hu Rodriguez [facility] URINALYSIS 2024-02-02 06:13:00 Hu Rodriguez [facility] N-TERMINAL PRO-BNP 2024-02-02 06:13:00 Hu Rodriguez [facility] ASSIGNMENT OF BENEFITS 2022-07-27 01:41:08 Docto r Unassigned, Johnston [facility] NOTICE OF PRIVACY PRACTICES 2022-07-27 00:13:35 Doctor Unassigned, Johnston [facility] CONSENT/REFUSAL FOR DIAGNOSIS AND TREATMENT 2022-07-27 00:12:21 Doctor Unassigned, Johnston [facility] Encounters Start Date/Time End Date/Time Encounter Type Admission Type Attending [facility] Care Department Encounter ID Source 2024-02-01 23:52:00 2024-02-02 03:37:00 Emergency Hu Rodriguez [facility] [id number] [facility] 2024-02-01 23:52:00 2024-02-02 03:37:00 Emergency HU [facility]LL [facility] ERT [id number] [facility] 2023-03-29 07:41:45 2023-03-29 07:41:45 Outpatient SFA SFA [id number] Hari Haines 2022-07-27 15:55:59 2022-07-27 15:55:59 Outpatient SFA SFA [id number] Hari Haines 2022-07-26 19:21:00 2022-07-26 20:48:00 Emergency PATRICIA BYRNE LASEVEN ERT [id number] [facility] 2022-07-26 19:21:00 2022-07-26 20:48:00 Emergency Patricia Bueno [facility] [id number] [facility] Results Test Description Test Time Test Comments Results Result Co mments Source [facility] [id number] 08:57:11* Test Item Value Reference Range Interpretation Comme nts TROPONIN I (test code = 8996519414) 0.003 ng/mL <=0.034 MYRIAM (test code = MYRIAM) Reference (Normal) Range (defined by the 99th percentile reference limit): <= 0.034 ng/mL Note: Cardiac troponin begins to rise 3-4 hours after the onset of ischemia. Repeat in 4-6 hours if the sample was drawn within 3-4 hours of the onset of the symptom and found normal. Diagnosis of myocardial injury is made with acute changes in cTn concentrations with at least one serial sample above the 99th percentile upper reference limit (URL), taken together with the patient's clinical presentation. Biotin has been reported to cause a negative bias, interpret results relative to patient's use of biotin. Lab Interpretation (test code = 31197-6) Normal [facility] PELVIS W [id number] 08:22:42ORDERING PHYSICIAN:HU BILLY CLINICAL INFORMATION: Abdominal pain ?Diverticulitis, complicationsuspected COMPARISON: None Technique: ? CT of the abdomen and pelvis was performed after theadministration of IV contrast. No p.o. contrast was used. Multiplanarreformats were also obtained. This study was performed according to ALARAprinciple for radiation dose reduction. Findings: There is no evidence of obstructive uropathy. Multiple renal cysts are seenbilaterally. Largest one measures 4.2 cm in diameter and is located in theinterpolar region of the left kidney. Multiple small cysts are also seen inthe liver. The largest one measures 1.4 cm and the left hepatic lobe.Spleen, adrenal glands, and pancreas show no evidence of gross abnormality.There is no bowel obstruction. There is no appendicitis. Colonicdiverticulosis is seen without evidence of acute diverticulitis. No freeintraperitoneal air or fluid are present. No pathologically enlarged lymphnodes are seen in the abdomen or pelvis. The lung bases are clear. Thereare no suspicious focal osseous lesions. [facility] HospitalEthanol2024-11-29 08:10:43 ALCOHOL<10mg/dL02/02/2024 2:10 AM [facility]10 [id number] Toxic>100 Depression of SHEET FED PRINTER>400 Fatalities ReportedUnBaylor Scott & [facility] Hill[facility]stComp. Metabolic Panel ([id number])2024-02-02 06:45:48* Test Item Value Reference Range Interpretation Comme nts NA (test code = 3220231625) 142 mmol/L 135-145 K (test code = 4417061573) 3.9 mmol/L 3.5-5.0 CL (test code = 7694747536) 104 mmol/L 98-108 CO2 TOTAL (test code = 3874070246) 34 mmol/L 23-31 H AGAP (test code = 8966208485) 4 2-16 BUN (test code = 3431354794) 12 mg/dL 7-23 GLUCOSE (test code = 7698652947) 94 mg/dL 70-110 CREATININE (test code = 2160-0) 0.98 mg/dL 0.60-1.25 TOTAL BILI (test code = 5921322169) 0.2 mg/dL 0.1-1.1 CALCIUM (test code = 3847245730) 9.4 mg/dL 8.6-10.6 T PROTEIN (test code = 7513748492) 7.0 g/dL 6.3-8.2 ALBUMIN (test code = 8484208737) 4.5 g/dL 3.5-5.0 ALK PHOS (test code = 9015493021) 44 U/L 34-122 ALTv (test code = 1742-6) 24 U/L 5-50 AST(SGOT) (test code = 8583394476) 30 U/L 13-40 eGFR (test code = 64794-2) 95.1 mL/min/1.73m2 CKD-EPI eGFR (2020). Assuming creatinine has been stable day-to-day for at least three months, the eGFR indicates Category G1 (>= 90 mL/min/1.73 m2) Lab Interpretation (test code = 88177-6) Abnormal [facility] Hospital[facility]ase2024-11-29 06:45:48* Test Item Value Reference Range Interpretation Comme nts LIPASE (test code = 9806853614) 90 U/L 0-220 Lab Interpretation (test cod e = 75631-4) Normal [facility] HospitalCb with [id number] 06:27:05* Test Item Value Reference Range Interpretation Comme nts WBC (test code = 6690-2) 8.60 4.20-10.70 RBC (test code = 789-8) 4.38 4.26-5.52 HGB (test code = 718-7) 14.6 g/dL 12.2-16.4 HCT (test code = 4544-3) 43.6 % 38.4-49.3 MCV (test code = 787-2) 99.5 fL 81.7-95.6 H MCH (test code = 785-6) 33.3 pg 26.1-32.7 H MCHC (test code = 786-4) 33.5 g/dL 31.2-35.0 RDW-SD (test code = 63998-2) 49.1 fL 38.5-51.6 RDW-CV (test code = 788-0) 13.4 % 12.1-15.4 PLT (test code = 777-3) 239 150-328 MPV (test code = 14884-0) 9.2 fL 9.8-13.0 L NRBC/100 WBC (test code = 8590288287) 0.0 0.0-10.0 NRBC x10^3 (test code = 8426755722) See_Comment [Automated messa ge] The system which generated this result transmitted reference range: 10*3/?L. The reference range was not used to interpret this result as normal/abnormal. GRAN MAT (NEUT) % (test code = 770-8) 45.4 % IMM GRAN % (test code = 0153325971) 0.20 % LYMPH % (test code = 736-9) 37.6 % MONO % (test code = 5905-5) 9.8 % EOS % (test code = 713-8) 6.3 % BASO % (test code = 706-2) 0.7 % GRAN MAT x10^3(ANC) (test code = 1484340706) 3.91 10*3/uL 1.99-6.95 IMM GRAN x10^3 (test code = 2998174855) 0.00-0.06 LYMPH x10^3 (test code = 731-0) 3.23 10*3/uL 1.09-3.23 MONO x10^3 (test code = 742-7) 0.84 10*3/uL 0.36-1.02 EOS x10^3 (test code = 711-2) 0.54 10*3/uL 0.06-0.53 H BASO x10^3 (test code = 704-7) 0.06 10*3/uL 0.01-0.09 Lab Interpretation (test code = 17014-0) Abnormal [facility] Hospital[facility]. PYLORI (BREATH)2022-07-29 13:22:55* Test Item Value Reference Range Interpretation Comme nts H. PYLORI (BREATH) (test code = 75657) NEGATIVE NEGATIVE UNLESS OTHER MAYERS INDICATED, ALL TESTING PERFORMED AT CLINICAL PATHOLOGY [employer] [address] [place] [address] UNEMPLOYMENT CLAIMS ADJUDICATOR: CESIA LOPEZ M.D. CLIA NUMBER [id number] [facility] [place]. [id number] VITAMIN D, 25 [id number] 05:33:29* Test Item Value Reference Range Interpretation [...] . NG/ML 30-100 CBC W/AUTO DIFF WITH [id number] 02:13:37* Test Item Value Reference Range Interpretation [...] 0.00-0.10 ABS NUCLEATED RBCS (test code = 26968) 0.00 K/UL 0.00-0.11 Notes Date/Time Note Provider Source 2024-02-02 03:31:40 Pt given printed and verbal discharge instructions regarding lower abdominal pain and epigastric pain. Prescriptions provided. Pt verbalized understanding of instructions, pt awake alert oriented, resp reg unlabored, skin w/d, color appropriate for race, moves all ext well, pt encouraged to follow up with pcp. Advised to seek medical attention for new/prolonged/worsening of symptoms. No adverse reaction to meds given in ER noted upon discharge. PIV d'cd, dressing to site, catheter in tact. Awake, alert oriented, resp reg unlabored, skin w/d, pt leaving amb with steady gait, in no apparent distress. 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 Pain is a burning and stabbing pain 09/12 in middle ABD. Reports hx of diverticulitis and hiatal hernia. AXOx4 Y Paredes RN [facility]
[2024-02-03 13:39] LABS: Absolute Basophils 0.1 K/uL (0-0.5); Absolute Eosinophils 0.2 K/uL (0-0.5); Absolute Lymphocytes (CBC) 1.8 K/uL (0.7-4.9); Absolute Monocytes 0.5 K/uL (0.1-1.3); Absolute Neutrophil 4.7 K/uL (1.8-8.0); Basophils % 0.9 % (0-1.3); Eosinophils % 3.3 % (0-4.4); Hematocrit 45.9 % (39.6-49.0); Hemoglobin 15.3 g/dL (13.6-17.9); Lymphocytes % 25.2 % (15.3-44.8); MCH 33.1 pg (27.0-35.0); MCHC 33.4 g/dL (32.0-36.0); MCV 99.2 fL (80-100); MPV 7.6 fL (7.6-11.3); Monocytes % 6.5 % (3.3-12.3); Neutrophils % 64.1 % (41.7-73.7); Platelets 263 thou/uL (152-406); RBC Red Blood Cell Count 4.62 M/uL (4.33-5.43); Red Cell Distribution Width 14.2 % (12.1-15.2)
[2024-02-03 13:41] LABS: Specific Gravity 1.008 (1.005-1.030); Sqamous Epithelial None Seen /HPF (None Seen); Urine Bacteria None Seen /HPF (<20); Urine Bilirubin NEGATIVE (Negative); Urine Blood Negative (Negative); Urine Clarity Turbid (Clear); Urine Color Colorless (Yellow); Urine Culture Reflex Order NOT NEEDED; Urine Glucose NEGATIVE (Negative); Urine Ketones NEGATIVE (Negative); Urine Microscopic Reflex YN ORDER UMIC; Urine Nitrite NEGATIVE (Negative); Urine Protein NEGATIVE (Negative); Urine RBC <5 /HPF (None Seen); Urine Urobilinogen Normal (Normal); Urine WBC <5 /HPF (<5); Urine pH 7.5 (5.0-7.0)
[2024-02-03 13:42] LABS: PT Prothrombin Time 11.7 SECONDS (9.4-12.5); Protime INR 1.05
--- NOTE | 2024-02-03 13:46 | RAD REPORT ---
EXAM: Chest Single View HISTORY: COUGH COMPARISON: 08/07/2021 FINDINGS: LUNGS/PLEURA: The lungs are clear. No pleural effusions or pneumothorax. No pulmonary edema. MEDIASTINUM: The mediastinal silhouette is within normal limits. CARDIAC: The cardiac silhouette is within normal limits. UPPER ABDOMEN: No significant abnormality. BONES: No acute fracture. LINES/TUBES/OTHER: N/A IMPRESSION: No evidence of acute cardiopulmonary disease.
[2024-02-03 14:02] LABS: ALT/SGPT 29 U/L (16-61); AST/SGOT 18 U/L (15-37); Albumin 3.9 g/dL (3.4-5.0); Albumin/Globulin Ratio 1.2 (1.1-1.8); Alkaline Phosphatase 44 U/L (45-117); Anion Gap 6.8 mEq/L (5.0-15.0); BUN Blood Urea Nitrogen 11 mg/dL (7-18); Bicarbonate 30 mEq/L (21-32); Bilirubin Total 0.2 mg/dL (0.2-1.0); Globulin 3.3 g/dL (2.3-3.5); Glomerular Filtration Rate 88 ml/min (=/>90); Glucose Level 87 mg/dL (74-106); Lipase 41 U/L (13-75); Magnesium 2.4 mg/dL (1.6-2.4); NT PRO-BNP 31 pg/mL (<125); Potassium 3.8 mEq/L (3.5-5.1); Protein, Total 7.2 g/dL (6.4-8.2); Sodium Level 141 mEq/L (136-145); Troponin High Sensitivity 4.7 pg/mL (<58.9)
[2024-02-03 14:03] LABS: Bilirubin Direct < 0.2 mg/dL (0-0.2)
[2024-02-03] MEDS ORDERED: NA CHLORIDE 0.9% 1,000 ML ONE (14:12)
--- NOTE | 2024-02-03 15:10 | ER ---
Nurse's Notes [facility] Name: Beny Nino Age: 48 yrs Sex: Male : 1975 Arrival Date: 02/03/2024 Time: 11:50 Bed 13 Private MD: Diagnosis: Weakness;Cough;Disease of upper respiratory tract, unspecified;Acute upper respiratory infection, unspecified Presentation: 02/02 12:12 Chief complaint: Patient states: off and on for the last couple of days, feeling tm6 fatigued and tired, my apple watch shows my pulse is high, my mouth stays dry no matter how much I drink, I feel dizzy here and there, feeling like I might have a fever. I went to [facility] last night and they said I have diverticulosis. Coronavirus screen: Client denies travel out of the [place] in the last 14 days. Ebola Screen: Patient negative for fever greater than or equal to 101.5 degrees Fahrenheit, and additional compatible Ebola Virus Disease symptoms Patient denies exposure to infectious person. Patient denies travel to an Ebola-affected area in the 21 days before illness onset. No symptoms or risks identified at this time. Initial Sepsis Screen: Does the patient meet any 2 criteria? No. Patient's initial sepsis screen is negative. Does the patient have a suspected source of infection? No. Patient's initial sepsis screen is negative. Risk Assessment: Do you want to hurt yourself or someone else? Patient reports no desire to harm self or others. Onset of symptoms was January 30, 2024. 12:12 Method Of Arrival: Ambulatory tm6 12:12 Acuity: LEO 3 tm6 Triage Assessment: 12:14 General: Appears in no apparent distress. Behavior is calm, cooperative. Pain: Denies tm6 pain. EENT: No signs and/or symptoms were reported regarding the EENT system. EENT: Reports dry mouth for 3-4 days. Neuro: Level of Consciousness is awake, alert, obeys commands, Oriented to person, place, time, situation. Cardiovascular: Patient's skin is warm and dry. Respiratory: Airway is patent Respiratory effort is even, unlabored, Respiratory pattern is regular, symmetrical. GI: No signs and/or symptoms were reported involving the gastrointestinal system. Abdomen is flat, non-distended. : No signs and/or symptoms were reported regarding the genitourinary system. Derm: No signs and/or symptoms reported regarding the dermatologic system. Musculoskeletal: Reports general weakness and fatigue x3-4 days. Historical: - Allergies: 12:14 No Known Allergies; tm6 - PMHx: 12:14 Diverticulitis; tm6 - PSHx: 12:14 knee cellulitis SX; tm6 - Immunization history:: Flu vaccine is not up to date. - Infectious Disease History:: Denies. - Social history:: Smoking status: Patient denies any tobacco usage or history of. Screenin:22 [facility] ED Fall Risk Assessment (Adult) History of falling in the last 3 months, tm6 including since admission No falls in past 3 months (0 pts) Confusion or Disorientation No (0 pts) Intoxicated or Sedated No (0 pts) Impaired Gait No (0 pts) Mobility Assist Device Used No (0 pt) Altered Elimination No (0 pt) Score/Fall Risk Level 0 - 2 = Low Risk Oriented to surroundings, Maintained a safe environment, Educated pt \T\ family on fall prevention, incl call for assistance when getting out of bed. Abuse screen: Denies threats or abuse. Denies injuries from another. Nutritional screening: No deficits noted. Tuberculosis screening: No symptoms or risk factors identified. Assessment: 14:21 Reassessment: Patient and/or family updated on plan of care and expected duration. Pain tm6 level reassessed. Patient is alert, oriented x 3, equal unlabored respirations, skin warm/dry/pink. see triage assessment. 15:28 Reassessment: Patient and/or family updated on plan of care and expected duration. Pain tm6 level reassessed. Patient is alert, oriented x 3, equal unlabored respirations, skin warm/dry/pink. Vital Signs: 12:11 BP 153 / 90; Pulse 88; Resp 18; Temp 98.6(O); Pulse Ox 99% on R/A; MAP 108 mmHg; Weight tm6 82.55 kg; Height 5 ft. 10 in. ; Pain 0/10; 14:21 BP 128 / 86; Pulse 78; Pulse Ox 97% on R/A; MAP 99 mmHg; Pain 0/10; tm6 15:29 BP 141 / 100; Pulse 85; Resp 16; Temp 98.7; Pulse Ox 99% on R/A; MAP 111 mmHg; Pain tm6 0/10; 12:11 Body Mass Index 26.11 (82.55 kg, 177.8 cm) tm6 12:11 Pain Scale: Adult tm6 14:21 Pain Scale: Adult tm6 15:29 Pain Scale: Adult tm6 ED Course: 11:53 Patient arrived in ED. im 11:55 Shar Nino MD is Attending Physician. lui 12:14 Triage completed. tm6 12:14 Arm band placed on right wrist. tm6 13:34 Basic Metabolic Panel Sent. nh2 13:34 CBC with Diff Sent. nh2 13:34 LFT's Sent. nh2 13:34 Magnesium Sent. nh2 13:34 NT PRO-BNP Sent. nh2 13:34 PT-INR Sent. nh2 13:34 Troponin HS Sent. nh2 13:34 Lipase Sent. nh2 13:34 Urinalysis w/ reflexes Sent. nh2 13:34 Inserted saline lock: 20 gauge in left antecubital area, using aseptic technique. Blood nh2 collected. Flushed with 10 mL NS. 13:44 XRAY Chest (1 view) In Process Unspecified. EDMS 14:08 Dalton Marshall, RN is Primary Nurse. tm6 14:22 Patient has correct armband on for positive identification. Bed in low position. Call tm6 light in reach. Side rails up X 1. Provided Education on: use of call melgar. Client placed on continuous cardiac and pulse oximetry monitoring. NIBP monitoring applied. copy lathe operator on. Pulse ox on. NIBP on. Door closed. Noise minimized. Lights dimmed. Pillow given. 15:29 No provider procedures requiring assistance completed. IV discontinued, intact, tm6 bleeding controlled, No redness/swelling at site. Pressure dressing applied. Administered Medications: 14:21 Drug: NS 0.9% IV 1000 ml IV at 1000 ml once; to be given as a bolus over 60 minutes tm6 Route: IV; Rate: 1000 ml; Site: left antecubital; 15:28 Follow up: Response: No adverse reaction; IV Status: Completed infusion; IV Intake: tm6 1000ml 15:28 Drug: AZITHromycin PO 500 mg PO once Route: PO; tm6 15:28 Follow up: Response: Medication administered at discharge. tm6 Medication: 14:22 VIS not applicable for this client. tm6 Intake: 15:28 IV: 1000ml; Total: 1000ml. tm6 Outcome: 15:10 Discharge ordered by . lui 15:29 Discharged to home ambulatory, tm6 15:29 Condition: stable 15:29 Discharge instructions given to patient, Instructed on discharge instructions, follow up and referral plans. medication usage, Demonstrated understanding of instructions, follow-up care, medications, Prescriptions given X 2, 15:30 Patient left the ED. tm6 Signatures: Dispatcher [employer] EDNC Shar Nino MD MD cha Mendoza, Itzel im Masterson, Tawney, RN RN tm6 Sky Robbins, Dre nh2 Corrections: (The following items were deleted from the chart) 12:14 12:12 Chief complaint: Patient states: off and on for the last couple of days, feeling tm6 fatigued and tired, my apple watch shows my pulse is high, my mouth stays dry no matter how much I drink, I feel dizzy here and there, feeling like I might have a fever. tm6
--- NOTE | 2024-02-03 15:11 | EDPHYS ---
Physician Documentation [facility] Name: Beny Nino Age: 48 yrs Sex: Male : 1975 Arrival Date: 02/03/2024 Time: 11:50 Bed 13 Private MD: Shar De La Rosa HPI: 02/02 15:05 This 48 yrs old Male presents to ER via Ambulatory with complaints of General lui Weakness, Fatigue, Dry Mouth. 15:05 WEAKNESS. The patient or guardian reports cough, that is intermittent. Onset: The lui symptoms/episode began/occurred 3 day(s) ago. Severity of symptoms: At their worst the symptoms were mild, in the emergency department the symptoms are unchanged. Modifying factors: The symptoms are alleviated by nothing, the symptoms are aggravated by nothing. Associated signs and symptoms: Pertinent positives: rhinorrhea. Severity of symptoms: At their worst the symptoms were mild in the emergency department the symptoms are unchanged. The patient has experienced similar episodes in the past, several times. Historical: - Allergies: 12:14 No Known Allergies; tm6 - PMHx: 12:14 Diverticulitis; tm6 - PSHx: 12:14 knee cellulitis SX; tm6 - Immunization history:: Flu vaccine is not up to date. - Infectious Disease History:: Denies. - Social history:: Smoking status: Patient denies any tobacco usage or history of. ROS: 15:06 Constitutional: Negative for fever, chills, and weight loss, Eyes: Negative for injury, lui pain, redness, and discharge, ENT: Negative for injury, pain, and discharge, Neck: Negative for injury, pain, and swelling, Cardiovascular: Negative for chest pain, palpitations, and edema, Abdomen/GI: Negative for abdominal pain, nausea, vomiting, diarrhea, and constipation, Back: Negative for injury and pain, : Negative for injury, bleeding, discharge, and swelling, MS/Extremity: Negative for injury and deformity, Skin: Negative for injury, rash, and discoloration, Neuro: Negative for headache, weakness, numbness, tingling, and seizure, Psych: Negative for depression, anxiety, suicide ideation, homicidal ideation, and hallucinations, Allergy/Immunology: Negative for hives, rash, and allergies, Endocrine: Negative for neck swelling, polydipsia, polyuria, polyphagia, and marked weight changes, Hematologic/Lymphatic: Negative for swollen nodes, abnormal bleeding, and unusual bruising, 15:06 Respiratory: Positive for cough, with no reported sputum, Exam: 15:06 Constitutional: This is a well developed, well nourished patient who is awake, alert, lui and in no acute distress. Head/Face: Normocephalic, atraumatic. Eyes: Pupils equal round and reactive to light, extra-ocular motions intact. Lids and lashes normal. Conjunctiva and sclera are non-icteric and not injected. Cornea within normal limits. Periorbital areas with no swelling, redness, or edema. ENT: Nares patent. No nasal discharge, no septal abnormalities noted. Tympanic membranes are normal and external auditory canals are clear. Oropharynx with no redness, swelling, or masses, exudates, or evidence of obstruction, uvula midline. Mucous membranes moist. Neck: Trachea midline, no thyromegaly or masses palpated, and no cervical lymphadenopathy. Supple, full range of motion without nuchal rigidity, or vertebral point tenderness. No Meningismus. Chest/axilla: Normal chest wall appearance and motion. Nontender with no deformity. No lesions are appreciated. Cardiovascular: Regular rate and rhythm with a normal S1 and S2. No gallops, murmurs, or rubs. Normal PMI, no JVD. No pulse deficits. Respiratory: Lungs have equal breath sounds bilaterally, clear to auscultation and percussion. No rales, rhonchi or wheezes noted. No increased work of breathing, no retractions or nasal flaring. Abdomen/GI: Soft, non-tender, with normal bowel sounds. No distension or tympany. No guarding or rebound. No evidence of tenderness throughout. Back: No spinal tenderness. No costovertebral tenderness. Full range of motion. Male : Normal genitalia with no discharge or lesions. Skin: Warm, dry with normal turgor. Normal color with no rashes, no lesions, and no evidence of cellulitis. MS/ Extremity: Pulses equal, no cyanosis. Neurovascular intact. Full, normal range of motion., bilateral aka Neuro: Awake and alert, GCS 15, oriented to person, place, time, and situation. Cranial nerves II-XII grossly intact. Motor strength 5/5 in all extremities. Sensory grossly intact. Cerebellar exam normal. Normal gait. Psych: Awake, alert, with orientation to person, place and time. Behavior, mood, and affect are within normal limits. 15:06 ECG was reviewed by the Attending Physician. 15:06 Musculoskeletal/extremity: Extremities: all appear grossly normal, with no appreciated pain with palpation, ROM: no acute changes, Circulation is intact in all extremities. Sensation intact. Compartment Syndrome exam of affected extremity: is normal. Weight bearing: able to fully bear weight, without difficulty, DVT Exam: No signs of deep vein thrombosis. no pain, no swelling, no tenderness, negative Homans' sign noted on exam, no appreciated bluish discoloration, no erythema, no increased warmth, Vital Signs: 12:11 BP 153 / 90; Pulse 88; Resp 18; Temp 98.6(O); Pulse Ox 99% on R/A; MAP 108 mmHg; Weight tm6 82.55 kg; Height 5 ft. 10 in. ; Pain 0/10; 14:21 BP 128 / 86; Pulse 78; Pulse Ox 97% on R/A; MAP 99 mmHg; Pain 0/10; tm6 15:29 BP 141 / 100; Pulse 85; Resp 16; Temp 98.7; Pulse Ox 99% on R/A; MAP 111 mmHg; Pain tm6 0/10; 12:11 Body Mass Index 26.11 (82.55 kg, 177.8 cm) tm6 12:11 Pain Scale: Adult tm6 14:21 Pain Scale: Adult tm6 15:29 Pain Scale: Adult tm6 MDM: 11:55 Medical Screening Exam initiated lui 15:07 Differential Diagnosis sepsis, flu, Obstructed Airway Bronchitis Influenza Upper lui Respiratory Infection Sinusitis Pharyngitis Viral Syndrome Pneumonia. Data reviewed: vital signs, nurses notes, lab test result(s), EKG, radiologic studies, plain films. Consideration of Admission/Observation Patient was admitted/placed on observation. Escalation of care including admission/observation considered. I considered the following discharge prescriptions or medication management in the emergency department Medications were administered in the Emergency Department. See MAR. Independent interpretation of the following test(s) in the Emergency Department EKG: See my EKG interpretation above. Test considered but Not performed: CT: NO CT CHEST. Historians other than the Patient: PT WELL INFORMED. Care significantly affected by the following chronic conditions: DIVERTICULITIS. Counseling: I had a detailed discussion with the patient and/or guardian regarding the historical points, exam findings, and any diagnostic results supporting the discharge/admit diagnosis, lab results, radiology results, the need for outpatient follow up, for definitive care, a family practitioner. 02/02 11:56 Order name: Basic Metabolic Panel; Complete Time: 14:46 [facility] 02/02 11:56 Order name: CBC with Diff; Complete Time: 14: [facility] 02/02 11:56 Order name: LFT's; Complete Time: 14:46 [facility] 02/02 11:56 Order name: Magnesium; Complete Time: 14:46 [facility] 02/02 11:56 Order name: NT PRO-BNP; Complete Time: 14:46 [facility] 02/02 11:56 Order name: PT-INR; Complete Time: 14: [facility] 02/02 11:56 Order name: Troponin HS; Complete Time: 14:46 [facility] 02/02 11:56 Order name: Urinalysis w/ reflexes; Complete Time: 14: [facility] 02/02 11:56 Order name: Lipase; Complete Time: 14:46 [facility] 02/02 11:56 Order name: XRAY Chest (1 view); Complete Time: 14: [facility] 02/02 11:56 Order name: Cardiac monitoring; Complete Time: 14:06 [facility] 02/02 11:56 Order name: EKG - Nurse/Tech; Complete Time: 14:06 [facility] 02/02 11:56 Order name: IV Saline Lock; Complete Time: 14:08 [facility] 02/02 11:56 Order name: Labs collected and sent; Complete Time: 13:34 [facility] 02/02 11:56 Order name: O2 Per Protocol; Complete Time: 14:08 [facility] 02/02 11:56 Order name: O2 Sat Monitoring; Complete Time: 14:06 [facility] EC:06 Rate is 71 beats/min. Rhythm is regular. QRS [place] is Normal. VT interval is normal. QRS lui interval is normal. QT interval is normal. No Q waves. T waves are Normal. No ST changes noted. Clinical impression: NSR w/ Non-specific ST/T Changes and No evidence of ischemia. Interpreted by me. Reviewed by me. Administered Medications: 14:21 Drug: NS 0.9% IV 1000 ml IV at 1000 ml once; to be given as a bolus over 60 minutes tm6 Route: IV; Rate: 1000 ml; Site: left antecubital; 15:28 Follow up: Response: No adverse reaction; IV Status: Completed infusion; IV Intake: tm6 1000ml 15:28 Drug: AZITHromycin PO 500 mg PO once Route: PO; tm6 15:28 Follow up: Response: Medication administered at discharge. tm6 Disposition Summary: 02/03/24 15:10 Discharge Ordered Notes: Location: Home [facility] Problem: new lui Symptoms: have improved lui Condition: Stable lui Diagnosis - Weakness lui - Cough lui - Disease of upper respiratory tract, unspecified lui - Acute upper respiratory infection, unspecified lui Followup: lui - With: Private Physician - When: 2 - 3 days - Reason: Recheck today's complaints, Continuance of care, Re-evaluation by your physician Discharge Instructions: - Discharge Summary Sheet lui - Weakness lui - Cool Mist Vaporizer lui - Upper Respiratory Infection, Adult, [id number] lui - Cough, Adult, Argb-vu-Dcxf lui - Weakness, Jrom-iy-Csjn lui - Cough, Adult lui Forms: - Medication Reconciliation Form [facility] - Antibiotic Education lui - Prescription Opioid Use [facility] - Patient Portal Instructions [facility] - Leadership Thank You Letter [facility] Prescriptions: - Tessalon Perles 100 mg Oral capsule - take 2 capsule ORAL route every 8 hours As needed; 30 capsule; Refills: 0, lui Product Selection Permitted - Zithromax Z-Jace 250 mg Oral Tablet - take 1 tablet ORAL route as directed for 5 days Day 1 - take two (2) tablets lui one time. Day 2, 3, 4 , 5 take one (1) tablet once daily.; 6 tablet; Refills: 0, Product Selection Permitted Signatures: Dispatcher [employer] EDShar Gutierrez MD MD cha Masterson, Tawney, RN RN tm6 Corrections: (The following items were deleted from the chart) 11:56 11:56 BASIC METABOLIC PANEL+C.LAB.BRZ ordered. EDMS EDMS 11:56 11:56 CBC+H.LAB.BRZ ordered. EDMS EDMS 11:56 11:56 HEPATIC FUNCTION+C.LAB.BRZ ordered. EDMS EDMS 11:56 11:56 MAGNESIUM+C.LAB.BRZ ordered. EDMS EDMS 11:56 11:56 PROBNP+C.LAB.BRZ ordered. EDMS EDMS 11:56 11:56 PROTIME (+INR)+COAG.LAB.BRZ ordered. EDMS EDMS 11:56 11:56 Troponin High Sensitivity+C.LAB.BRZ ordered. EDMS EDMS 11:56 11:56 Urinalysis+U.LAB.BRZ ordered. EDMS EDMS 11:56 11:56 LIPASE+C.LAB.BRZ ordered. EDMS EDMS 11:56 11:56 Chest Single View+RAD.RAD.BRZ ordered. EDMS EDMS
[2024-02-03] MEDS ORDERED: AZITHROMYCIN 250 MG TAB ONE (15:22)
[2024-02-03 16:05] VITALS: BP 141/100; TEMP 98.7; O2SAT 99
--- NOTE | 2024-02-04 14:13 | EKG ---
Test Date: 2024-02-03 Test Time: 13:58:23 Travel Physical Therapist: AM MEASUREMENT RESULTS: Intervals: Rate: 71 [place]: 136 QRSD: 88 QT: 380 QTc: 412 [place]: P: 64 WA: 136 QRS: 152 T: 15 INTERPRETIVE STATEMENTS: Normal sinus rhythm Left posterior fascicular block Abnormal ECG Compared to ECG 08/23/2023 15:28:12 No significant changes Electronically Signed On 02-04-24 14:11:13 CARBONATOR by Bassem Patel
== END 2024-02-03 15:30 | disposition home or self-care (01) ==
LOC: ER 11:50
DX: R53.1 Weakness (principal); J06.9 Acute upper respiratory infection, unspecified; R05.9 Cough, unspecified; R53.83 Other fatigue
CPT/HCPCS: 93005; 85025; 81001; 80048; 36415; 83735; 85610; 80076; 84484; 83690; 83880; 71045; 96360; 99285; J7030